=== PATIENT | female | born 1960 | race Caucasian/White ===

== ENCOUNTER 2021-01-29 11:49 | Outpatient (REF) | payer BC, SELFPAY ==
--- NOTE | ~2021-01-29 | MM_ITS ---
EXAMINATION: MM SCREENING DIGITAL BREAST TOMOSYNTHESIS, BILATERAL CLINICAL INFORMATION: Screening. Asymptomatic. The lifetime risk of breast cancer based on the Tyrer-Cuzick Model is 7%. COMPARISON: Mammography: 07/19/2017, 12/02/2016, 08/20/2014; targeted right breast ultrasound 07/19/2017 and 12/07/2016. TECHNIQUE: Digital breast tomosynthesis is performed in both the craniocaudal and mediolateral oblique views along with computer-aided detection (CAD). Synthesized 2D images are generated from the tomosynthesis. FINDINGS: The breasts are heterogeneously dense, which may obscure small masses (ACR BI-RADS breast composition Category c). Breast tissue composition borders on average fibroglandular. There is no developing density or interval mass or architectural abnormality. The nodule posterior outer right breast on prior imaging corresponding to a cyst is no longer demonstrated with certainty. No abnormal calcifications. The axilla and skin contours are unremarkable. No significant changes. MM/MM tomosynthesis screening BI IMPRESSION: No mammographic evidence of malignancy. ASSESSMENT: BI-RADS 2: Benign RECOMMENDATION: Routine annual mammography screening. This patient's information was entered into a reminder system with a target due date for their next mammogram.
== END 2021-01-29 11:50 | disposition home or self-care (01) ==
LOC: HO.MAMMO 11:49
PROVIDERS: Visit Provider Internal Medicine
DX: Z12.31 Encounter for screening mammogram for malignant neoplasm of breast (principal)
CPT/HCPCS: 77063; 77067

== ENCOUNTER 2021-09-23 18:33 | Emergency (ER) | payer BC, SELFPAY ==
--- NOTE | ~2021-09-23 | XR_ITS ---
EXAMINATION: LEFT HAND CLINICAL INFORMATION: Pain along fifth digit COMPARISON: None TECHNIQUE: 3 views left hand FINDINGS: No significant bone, joint or soft tissue abnormality is seen. No evidence of acute traumatic injury. No foreign body is detected. XR/XR hand wrist LT IMPRESSION: No acute abnormality.
[2021-09-23 20:09] VITALS: BP 132/81; PULSE 77; RESP 18; TEMP 36.7; O2SAT 98; BMI 32.0
[2021-09-23] MEDS: Ibuprofen 600 MG TABLET PO (20:15)
--- NOTE | 2021-09-23 22:56 | ED.EXTPRO ---
HPI - Extremity Problem General Chief complaint: Extremity Injury, Upper Stated complaint: fall left hand lac Time Seen by Provider: 09/23/21 22:56 History of Present Illness HPI Narrative: Patient complains of laceration to left hand and some pain in the left hand since fall this morning when she tripped and fell, she did faint there is no head injury no neck injury no back pain no other complaint Related Data Allergies Allergy/AdvReac Type Severity Reaction Status Date / Time acetaminophen [From Tylenol] Allergy Severe Anaphylaxis Verified 09/23/21 20:08 EXTRA STRENGTH MEDICATIONS Allergy Intermediate SEVERE Uncoded 09/23/21 20:08 SWELLING ENVIRONMENTAL Allergy Unknown SINUS Uncoded 06/13/20 16:03 PROBLEMS Review of Systems Review of Systems: Positive for left hand injury Negatives are no head injury no headache no loss of consciousness no neck pain no numbness weakness or tingling no back pain no other extremity pains Yes all other systems are reviewed and are negative PMFSH Past Medical History Source: nursing notes reviewed Medical History (Updated 09/24/21 @ 00:02 by Rosa Blood) Asthma Depression Hypothyroid Surgical History (Updated 09/23/21 @ 20:10 by Adela Roque RN) H/O rotator cuff surgery Social History Social History Advance Directives: No Advance Directives Information Provided: Yes Patient : No Physical Exam Vital Signs: Vital Signs: Last Vital Signs Temp 98.0 F 09/23/21 20:09 Pulse 72 09/23/21 23:06 Resp 16 09/23/21 23:06 BP 108/70 09/23/21 23:06 Pulse Ox 98 09/23/21 23:06 BMI result Body Mass Index 32.0 General appearance no acute distress Head normocephalic atraumatic Neck is supple nontender The back full range of motion Respiratory no distress Extremities full range of motion x4 including left hand Left hand exam there are several small abrasions, there is a small superficial flap laceration on the ulnar lateral aspect of the hand, there is full range of motion in the fingers no evidence of any tendon deficit, flexion and extension are full and neurovascular intact distal The wrist has full range of motion is tool fingers Other extremities normal Course Course Course Narrative: Left hand 1.5 cm flap laceration is cleansed and irrigated and closed with Steri-Strips Left hand x-ray was negative Discharge Plan Discharge Clinical Impression: Contusion of hand, left, Laceration of left hand, Abrasion of hand, left Patient Disposition: Home, Self-Care Additional Instructions: Your x-ray did not show any broken bone The laceration to her left hand was closed with Steri-Strips, you can remove them in 5 or 6 days If they start to peel off you can trim them If the Band-Aid covering them that gets wet change, but the Steri-Strips if they get wet can be left air dry before applying a Band-Aid Return any sign of infection If you have continued pain in the hand follow with orthopedist Referrals: Yoseph Ramey MD [Physician] - 2 days (Hand pain after a fall negative x-ray) Interventions: ED Discharge Assessment Last Done: 09/23/21 23:27 Discharge Date/Time: 09/23/21 23:28
[2021-09-23] MEDS: Diphth,Pertus(ACell),Tet Adult 0.5 ML SYRINGE IM (23:03)
[2021-09-23 23:06] VITALS: BP 108/70; PULSE 72; RESP 16; O2SAT 98
== END 2021-09-23 23:28 | disposition home or self-care (01) ==
PROVIDERS: Emergency Provider Emergency Medicine Emergency Medical Services
DX: S61.412A Laceration without foreign body of left hand, initial encounter (principal); S60.222A Contusion of left hand, initial encounter; S60.512A Abrasion of left hand, initial encounter; J45.909 Unspecified asthma, uncomplicated; W01.0XXA Fall on same level from slipping, tripping and stumbling without subsequent striking against object, initial encounter; Y93.9 Activity, unspecified; Y92.9 Unspecified place or not applicable; Y99.9 Unspecified external cause status
CPT/HCPCS: 73110; 73130; 90471; 90715; 99284

== ENCOUNTER 2022-01-30 15:51 | Outpatient (REF) | payer BC, SELFPAY ==
--- NOTE | ~2022-01-30 | MM_ITS ---
EXAMINATION: MM SCREENING DIGITAL BREAST TOMOSYNTHESIS, BILATERAL CLINICAL INFORMATION: Screening. Asymptomatic. The lifetime risk of breast cancer based on the Tyrer-Cuzick Model is 6%. COMPARISON: Mammography: 01/29/2021, 07/19/2017, 12/02/2016, 08/20/2014 TECHNIQUE: Digital breast tomosynthesis is performed in both the craniocaudal and mediolateral oblique views along with computer-aided detection (CAD). Synthesized 2D images are generated from the tomosynthesis. FINDINGS: The breasts are heterogeneously dense, which may obscure small masses (ACR BI-RADS breast composition Category c). Parenchymal pattern is similar to prior studies. Breast tissue composition borders on average fibroglandular. No developing density or interval mass or architectural abnormality. The axilla and skin contours are unremarkable. No abnormal calcifications on the right. There are tightly grouped punctate calcifications versus pseudo calcifications posterior central left breast on CC view, not appreciated on MLO projection. Patient will be recalled for additional imaging. MM/MM tomosynthesis screening BI IMPRESSION: Left: -Tightly grouped punctate calcifications versus pseudo calcifications posterior central left breast on CC view. Right: -No mammographic evidence of malignancy. ASSESSMENT: BI-RADS 0: Incomplete - Need Additional Imaging Evaluation RECOMMENDATION: 1. Additional views of the left breast (magnification CC, magnification ML). 2. Radiology department staff will contact the patient for additional imaging. This patient's information was entered into a reminder system with a target due date for their next mammogram.
== END 2022-01-30 15:52 | disposition home or self-care (01) ==
LOC: HO.MAMMO 15:51
PROVIDERS: PCP Internal Medicine; Visit Provider Internal Medicine
DX: Z12.31 Encounter for screening mammogram for malignant neoplasm of breast (principal)
CPT/HCPCS: 77063; 77067

== ENCOUNTER 2022-02-06 13:02 | Outpatient (REF) | payer BC, SELFPAY ==
--- NOTE | ~2022-02-06 | MM_ITS ---
EXAMINATION: MM DIAGNOSTIC DIGITAL MAMMOGRAPHY, LEFT CLINICAL INFORMATION: Left breast calcifications COMPARISON: Mammography: 11/30/2021 and studies dating back to 08/20/2014 TECHNIQUE: Digital mammography is performed in the following views: Spot magnification views of the left breast and craniocaudal and 90 degree mediolateral views. FINDINGS: The breasts are heterogeneously dense, which may obscure small masses (ACR BI-RADS breast composition Category c). There is persistence of an indeterminate grouping of calcifications about the deep lateral aspect of the left breast for which stereotactic core biopsy is recommended. The above was discussed with the patient at the time of study. Breast center patient navigator will call referring provider's office with the above recommendation. MM/MM added views LT IMPRESSION: Indeterminate grouping of calcifications of the left breast for which stereotactic core biopsy is recommended. ASSESSMENT: BI-RADS 4: Suspicious RECOMMENDATION: Stereotactic core biopsy left breast calcifications.
== END 2022-02-06 13:03 | disposition home or self-care (01) ==
LOC: HO.MAMMO 13:02
PROVIDERS: PCP Internal Medicine; Visit Provider Internal Medicine
DX: R92.1 Mammographic calcification found on diagnostic imaging of breast (principal)
CPT/HCPCS: 77065

== ENCOUNTER 2022-02-11 08:53 | Outpatient (REF) | payer BC, SELFPAY ==
--- NOTE | ~2022-02-11 | MM_ITS ---
EXAMINATION: STEREOTACTIC TOMOSYNTHESIS-GUIDED VACUUM-ASSISTED BREAST BIOPSY, LEFT SPECIMEN RADIOGRAPH, LEFT POST PROCEDURE DIGITAL MAMMOGRAM, LEFT CLINICAL INFORMATION: Fine tightly grouped calcifications posterior central left breast recommended for tissue sampling. COMPARISON: Mammography 01/30/2022, 02/06/2022. TECHNIQUE/PROCEDURE: Informed consent was obtained from the patient after discussion of the benefits, risks, and alternatives to biopsy today. Patient appeared to understand. Gave opportunity for questions. Patient signed consent form. BIOPSY TABLE: [employer] Affirm Prone Biopsy System. LESION: Tightly grouped fine calcifications posterior central left breast. LOCAL ANESTHESIA: 10 mL carbonated 1% lidocaine; 10 mL 1% lidocaine with epinephrine. DERMATOTOMY: Single skin shayla dermatotomy performed. NEEDLE: Cortheraiva 9-gauge vacuum assisted core biopsy device. APPROACH: Caudal cranial. TARGETING: Combination of digital breast tomosynthesis and stereotactic digital mammography used for targeting. CORES: 7. CLIP: [employer] Cylinder-shaped marker. SPECIMEN RADIOGRAPH: Specimen radiograph is taken in separate room using digital mammography. The index calcifications are in the excised cores. There are over 12 calcifications in the cores. POST PROCEDURE UNILATERAL DIGITAL MAMMOGRAM: The post biopsy mammogram is performed in separate room using separate digital mammography equipment from the biopsy procedure. CC and ML views are obtained. The breasts are heterogeneously dense, which may obscure small masses (breast composition category: c). Breast tissue composition borders on average fibroglandular. The clip marker is deployed, likely mild caudal accordion effect. The calcifications are markedly decreased at the biopsy site and no longer clearly visible. No gross hematoma. The patient tolerated the procedure well. No immediate complications. Home instructions reviewed with the patient. Final pathology results are pending. MM/MM stereotactic biopsy LT IMPRESSION: 1. Digital tomosynthesis-guided core biopsy left breast with clip placement. 2. Specimen radiograph taken and post procedure mammogram. Probable mild caudal accordion effect clip marker. 3. Final pathology results pending. An addendum report will be issued.
[2022-02-11] MEDS: Lidocaine HCl 1 % 20 ML VIAL 10 ML SUBCUT (10:41)
[2022-02-11] MEDS: Sodium Bicarbonate 8.4% 50 MEQ/50 ML VIAL SUBCUT (10:45)
== END 2022-02-11 08:54 | disposition home or self-care (01) ==
LOC: HO.MAMMO 08:53
PROVIDERS: PCP Internal Medicine; Visit Provider Surgery
DX: R92.1 Mammographic calcification found on diagnostic imaging of breast (principal)
CPT/HCPCS: 19081; 88305; A4648

== ENCOUNTER → 2022-02-18 12:52 | Outpatient (BNVA) | payer BC, SELFPAY | PROVIDERS: PCP Internal Medicine; Visit Provider Surgery | DX: R92.1 Mammographic calcification found on diagnostic imaging of breast (principal) ==